=== PATIENT | female | born 1950 ===

== ENCOUNTER 2018-08-05 12:03 | Outpatient (CLI) | payer OTHER ==
[~2018-08-05] VITALS: Ht 167.6 cm; Wt 80.7 kg
== END 2018-08-05 12:20 | disposition home or self-care (01) ==
LOC: OFIC 805 12:03
DX: H91.8X2 Other specified hearing loss, left ear (principal); H93.12 Tinnitus, left ear

== ENCOUNTER 2018-08-29 10:52 | Outpatient (CLI) | payer OTHER ==
[~2018-08-29] VITALS: Ht 152.4 cm; Wt 79.4 kg
== END 2018-08-29 14:42 | disposition home or self-care (01) ==
LOC: OFIC 805 10:52
DX: H93.12 Tinnitus, left ear (principal); H91.8X2 Other specified hearing loss, left ear; H73.891 Other specified disorders of tympanic membrane, right ear

== ENCOUNTER 2018-09-23 07:59 | Outpatient (CLI) | payer OTHER ==
[~2018-09-23] VITALS: Ht 152.4 cm; Wt 79.4 kg
== END 2018-09-23 11:04 | disposition home or self-care (01) ==
LOC: OFIC 805 07:59
DX: H90.42 Sensorineural hearing loss, unilateral, left ear, with unrestricted hearing on the contralateral side (principal); H93.12 Tinnitus, left ear; H74.39 Other acquired abnormalities of ear ossicles; J31.0 Chronic rhinitis; H69.82 Other specified disorders of Eustachian tube, left ear; H61.23 Impacted cerumen, bilateral